=== PATIENT | female | born 1980 | race Caucasian/White ===

== ENCOUNTER 2018-10-15 18:40 | Emergency (ER) | payer MEDICAID ==
[~2018-10-15] VITALS: Ht 154.9 cm; Wt 55.0 kg
[2018-10-15 20:27] LABS: CLARITY URINE CLEAR (CLEAR); COLOR URINE YELLOW (YELLOW); KETONES URINE NEGATIVE (NEGATIVE); LEUKOCYTE ESTERASE URINE NEGATIVE (NEGATIVE); NITRITE URINE NEGATIVE (NEGATIVE); OCCULT BLOOD URINE NEGATIVE (NEGATIVE); PH URINE 5.5 (4.5-8.0); PROTEIN URINE NEGATIVE (NEGATIVE); SPECIFIC GRAVITY URINE 1.018 (1.005-1.030); UROBILINOGEN URINE 0.2 E.U./dL (0.2-1.0)
[2018-10-16] MEDS ORDERED: ACETAMINOPHEN 325MG TABLET PO PRN (01:00)
[2018-10-16 02:01] LABS: CHLORIDE 104 mEq/L (98-107)
[2018-10-16 02:08] LABS: BASOPHILS % 0.5 % (0.0-2.0); EOSINOPHILS % 2.6 % (0.0-5.0); HEMATOCRIT. 35.5 % (36.0-48.0); HEMOGLOBIN. 12.3 g/dL (12.0-16.0); LYMPHOCYTES % 22.9 % (20.0-50.0); MEAN CORPUSCULAR HEMOGLOBIN 29.9 pg (28.0-32.0); MEAN CORPUSCULAR VOLUME 86.6 fL (81.0-99.0); MEAN PLATELET VOLUME 8.2 fl (7.4-10.4); MONOCYTES % 4.2 % (2.0-8.0); NEUTROPHILS % 69.8 % (40.0-76.0); PLATELET 315 x1000/uL (130-400); RED CELL DISTRIBUTION WIDTH 12.1 % (11.6-14.6)
[2018-10-16 02:34] LABS: B-HCG QUANTITATIVE 21435 mIU/mL (<3)
[2018-10-16 03:00] VITALS: BP 104/77
[2018-10-16 11:46] LABS: *AMPHETAMINES SCREEN URINE NEGATIVE (NEGATIVE); *BARBITURATES SCREEN URINE NEGATIVE (NEGATIVE); *BENZODIAZEPINES SCREEN URINE NEGATIVE (NEGATIVE); *COCAINE SCREEN URINE NEGATIVE (NEGATIVE)
[2018-10-16 11:47] LABS: CANNABINOID URINE SCREEN NEGATIVE (NEGATIVE); METHADONE URINE SCREEN NEGATIVE (NEGATIVE); OPIATES URINE SCREEN NEGATIVE (NEGATIVE); PHENCYCLIDINE URINE SCREEN NEGATIVE (NEGATIVE)
== END 2018-10-16 04:01 | disposition home or self-care (01) ==
LOC: ER 18:40
DX: O26.892 Other specified pregnancy related conditions, second trimester (principal); R10.32 Left lower quadrant pain; Z3A.16 16 weeks gestation of pregnancy; Z98.890 Other specified postprocedural states
CPT/HCPCS: 36415; 76805; 80305; 81025; 84702; 86850; 86900; 99284

== ENCOUNTER 2018-11-06 23:56 | Emergency (ER) | payer MEDICAID ==
[~2018-11-06] VITALS: Ht 162.6 cm; Wt 56.5 kg
[2018-11-07 01:25] LABS: CLARITY URINE CLOUDY (CLEAR); COLOR URINE YELLOW (YELLOW); KETONES URINE NEGATIVE (NEGATIVE); LEUKOCYTE ESTERASE URINE 2+ (NEGATIVE); NITRITE URINE NEGATIVE (NEGATIVE); OCCULT BLOOD URINE NEGATIVE (NEGATIVE); PH URINE 6.5 (4.5-8.0); PROTEIN URINE NEGATIVE (NEGATIVE); SPECIFIC GRAVITY URINE 1.017 (1.005-1.030); UROBILINOGEN URINE 0.2 E.U./dL (0.2-1.0)
[2018-11-07] MEDS ORDERED: ACETAMINOPHEN 325MG TABLET PO PRN (01:30)
[2018-11-07 01:48] LABS: BASOPHILS % 0.3 % (0.0-2.0); EOSINOPHILS % 3.8 % (0.0-5.0); HEMATOCRIT. 33.2 % (36.0-48.0); HEMOGLOBIN. 11.7 g/dL (12.0-16.0); LYMPHOCYTES % 22.6 % (20.0-50.0); MEAN CORPUSCULAR HEMOGLOBIN 30.5 pg (28.0-32.0); MEAN CORPUSCULAR VOLUME 86.5 fL (81.0-99.0); MEAN PLATELET VOLUME 7.8 fl (7.4-10.4); MONOCYTES % 4.7 % (2.0-8.0); NEUTROPHILS % 68.6 % (40.0-76.0); PLATELET 293 x1000/uL (130-400); RED BLOOD CELL COUNT 3.84 mill/uL (4.2-5.4); RED CELL DISTRIBUTION WIDTH 12.5 % (11.6-14.6)
[2018-11-07 01:49] LABS: CHLORIDE 106 mEq/L (98-107)
[2018-11-07 02:12] LABS: B-HCG QUANTITATIVE 12600 mIU/mL (<3)
[2018-11-07 04:58] VITALS: BP 112/67
== END 2018-11-07 05:00 | disposition home or self-care (01) ==
LOC: ER 23:56
DX: O23.42 Unspecified infection of urinary tract in pregnancy, second trimester (principal); Z3A.18 18 weeks gestation of pregnancy
CPT/HCPCS: 36415; 76805; 81025; 84702; 99284

== ENCOUNTER 2019-01-12 16:16 | Observation (INO) | payer MEDICAID ==
[~2019-01-12] VITALS: Ht 149.9 cm; Wt 59.0 kg
[2019-01-12 17:08] LABS: CLARITY URINE CLEAR (CLEAR); COLOR URINE YELLOW (YELLOW); KETONES URINE TRACE (NEGATIVE); LEUKOCYTE ESTERASE URINE NEGATIVE (NEGATIVE); NITRITE URINE NEGATIVE (NEGATIVE); OCCULT BLOOD URINE NEGATIVE (NEGATIVE); PROTEIN URINE NEGATIVE (NEGATIVE); SPECIFIC GRAVITY URINE 1.027 (1.005-1.030)
[2019-01-12] MEDS ORDERED: LACTATED RINGERS 1,000 ML IV SCH (18:00)
[2019-01-12] MEDS ORDERED: TERBUTALINE SULFATE 1MG/ML VIAL SUBCUT PRN (18:00)
== END 2019-01-12 19:20 | disposition home or self-care (01) ==
LOC: 8 EST LDRP 16:16
PROVIDERS: ADMIT Specialist; ATTEND Specialist
DX: O26.892 Other specified pregnancy related conditions, second trimester (principal); R10.30 Lower abdominal pain, unspecified; R10.2 Pelvic and perineal pain; Z3A.27 27 weeks gestation of pregnancy
CPT/HCPCS: 81003; 96372; 99281; G0378; J3105; 96360; 96361

== ENCOUNTER 2019-01-25 14:59 | Observation (INO) | payer MEDICAID ==
[~2019-01-25] VITALS: Ht 149.9 cm; Wt 59.0 kg
[2019-01-25] MEDS ORDERED: LACTATED RINGERS 1,000 ML IV SCH (17:15)
[2019-01-25] MEDS: TERBUTALINE SULFATE 1MG/ML VIAL SUBCUT PRN ×2 (17:33→19:42)
[2019-01-25] MEDS ORDERED: PNV1TABL50 PO (20:03)
[2019-01-25] MEDS ORDERED: CALC-1042 PO (20:03)
[2019-01-25] MEDS ORDERED: FERR-71 PO (20:03)
[2019-01-25] MEDS ORDERED: ASPI-1159 PO (20:03)
== END 2019-01-25 20:45 | disposition home or self-care (01) ==
LOC: INTOOBSV 14:59 → OBSVTOIN 14:59 → 8 EST LDRP 14:59
PROVIDERS: ADMIT Specialist; ATTEND Specialist
DX: O26.853 Spotting complicating pregnancy, third trimester (principal); Z3A.29 29 weeks gestation of pregnancy
CPT/HCPCS: 76815; 96372; 99281; G0378; J3105; 96360; 96361

== ENCOUNTER 2019-03-17 19:18 | Observation (INO) | payer MEDICAID ==
[~2019-03-17] VITALS: Ht 149.9 cm; Wt 60.8 kg
[~2019-03-17 19:18] MED LIST: ASPI-1393 PO; CALC-1042 PO; FERR-71 PO; PNV1TABL50 PO
[2019-03-17] MEDS ORDERED: FOLI0.4T2 MT (19:56)
[2019-03-17] MEDS: LACTATED RINGERS 1,000 ML IV SCH ×2 (20:31→22:27)
[2019-03-17] MEDS: TERBUTALINE SULFATE 1MG/ML VIAL SUBCUT PRN ×3 (20:53→22:36)
[2019-03-17 20:58] LABS: CLARITY URINE CLEAR (CLEAR); COLOR URINE YELLOW (YELLOW); KETONES URINE NEGATIVE (NEGATIVE); LEUKOCYTE ESTERASE URINE NEGATIVE (NEGATIVE); NITRITE URINE NEGATIVE (NEGATIVE); OCCULT BLOOD URINE NEGATIVE (NEGATIVE); PROTEIN URINE NEGATIVE (NEGATIVE); SPECIFIC GRAVITY URINE 1.021 (1.005-1.030)
[2019-03-17] MEDS ORDERED: LACTATED RINGERS 1,000 ML IV SCH (23:26)
[2019-03-17] MEDS ORDERED: DEXT 5%/LR + PITOCIN 20UNITS/L 1,000 ML IV SCH (23:26)
[2019-03-17] MEDS ORDERED: NALOXONE HCL 0.4 MG/ML 1ML VIAL IM PRN (23:30)
[2019-03-17] MEDS ORDERED: METHYLERGONOVINE MALEATE 0.2 MG/ML IM PRN (23:30)
[2019-03-17 23:57] LABS: INR 0.9; PARTIAL THROMBOPLASTIN TIME 25.7 sec (23.4-31.0); PROTHROMBIN TIME 9.5 sec (9.6-11.0)
[2019-03-18] LABS: BASOPHILS % 0.4 % (0.0-2.0); EOSINOPHILS % 2.8 % (0.0-5.0); HEMATOCRIT. 35.4 % (36.0-48.0); HEMOGLOBIN. 12.6 g/dL (12.0-16.0); MEAN CORPUSCULAR HEMOGLOBIN 31.5 pg (28.0-32.0); MEAN CORPUSCULAR VOLUME 88.4 fL (81.0-99.0); MEAN PLATELET VOLUME 8.5 fl (7.4-10.4); MONOCYTES % 3.5 % (2.0-8.0); NEUTROPHILS % 66.3 % (40.0-76.0); PLATELET 341 x1000/uL (130-400); RED CELL DISTRIBUTION WIDTH 12.9 % (11.6-14.6)
[2019-03-18 00:31] LABS: HEPATITIS B SURFACE ANTIGEN NEGATIVE
[2019-03-18 09:30] LABS: *AMPHETAMINES SCREEN URINE NEGATIVE (NEGATIVE); CANNABINOID URINE SCREEN NEGATIVE (NEGATIVE)
[2019-03-18 09:31] LABS: *BARBITURATES SCREEN URINE NEGATIVE (NEGATIVE); *BENZODIAZEPINES SCREEN URINE NEGATIVE (NEGATIVE); *COCAINE SCREEN URINE NEGATIVE (NEGATIVE); METHADONE URINE SCREEN NEGATIVE (NEGATIVE); OPIATES URINE SCREEN NEGATIVE (NEGATIVE)
[2019-03-18 09:32] LABS: PHENCYCLIDINE URINE SCREEN NEGATIVE (NEGATIVE)
== END 2019-03-18 05:15 | disposition home or self-care (01) ==
LOC: 8 EST LDRP 19:18
PROVIDERS: ADMIT Obstetrics & Gynecology; ATTEND Obstetrics & Gynecology
DX: O26.893 Other specified pregnancy related conditions, third trimester (principal); R10.30 Lower abdominal pain, unspecified; R10.2 Pelvic and perineal pain; R30.9 Painful micturition, unspecified; Z3A.36 36 weeks gestation of pregnancy
CPT/HCPCS: 36415; 80305; 81003; 85025; 85610; 85730; 86592; 86703; 86762; 86850; 86900; 86901; 87340; 96372; 99281; G0378; J3105; 96360; 96361

== ENCOUNTER 2023-08-21 10:47 | Emergency (ER) | payer MEDICAID ==
[~2023-08-21] VITALS: Ht 160 cm; Wt 65.0 kg
[~2023-08-21 10:47] MED LIST changes: -ASPI-1393 PO; +FOLI0.4T6 MT
[2023-08-21 11:08] VITALS: BP 120/83; PULSE 85; RESP 17; TEMP 98.6; O2SAT 100
[2023-08-21 11:58] LABS: BASOPHILS % 0.5 % (0.0-2.0); EOSINOPHILS % 3.5 % (0.0-5.0); HEMATOCRIT. 42.3 % (36.0-48.0); HEMOGLOBIN. 14.4 g/dL (12.0-16.0); LYMPHOCYTES % 26.5 % (20.0-50.0); MEAN CORPUSCULAR HEMOGLOBIN 30.8 pg (28.0-32.0); MEAN CORPUSCULAR VOLUME 90.4 fL (81.0-99.0); MEAN PLATELET VOLUME 8.5 fl (7.4-10.4); MONOCYTES % 4.2 % (2.0-8.0); NEUTROPHILS % 65.3 % (40.0-76.0); PLATELET 364 x1000/uL (130-400); RED BLOOD CELL COUNT 4.67 mill/uL (4.2-5.4); RED CELL DISTRIBUTION WIDTH 12.5 % (11.6-14.6); WHITE BLOOD COUNT 10.8 x1000/uL (4.5-11.0)
[2023-08-21 12:38] LABS: ALANINE AMINOTRANSFERASE 22 IU/L (10-49); ALBUMIN 4.5 g/dL (3.2-4.8); ASPARTATE AMINOTRANSFERASE 22 IU/L (<34); BILIRUBIN TOTAL 0.5 mg/dL (0.1-1.0); CALCIUM 9.8 mg/dL (8.7-10.4); CARBON DIOXIDE 29 mEq/L (21-32); CHLORIDE 103 mEq/L (98-107); CREATININE 0.7 mg/dL (0.6-1.0); GLUCOSE 97 mg/dL (70-105); POTASSIUM 3.9 mEq/L (3.5-5.1); PROTEIN TOTAL 7.6 g/dL (6.0-8.3); SODIUM 139 mEq/L (136-145); UREA NITROGEN BLOOD 12 mg/dL (9-23)
[2023-08-21 12:53] LABS: TROPONIN I HIGH SENSITIVITY < 4 ng/L (3.0-34)
[2023-08-21] MEDS ORDERED: MECLIZINE 25MG TABLET PO ONE (14:00)
[2023-08-21 14:13] LABS: CLARITY URINE CLEAR (CLEAR); COLOR URINE YELLOW (YELLOW); GLUCOSE URINE NEGATIVE (NEGATIVE); KETONES URINE NEGATIVE (NEGATIVE); LEUKOCYTE ESTERASE URINE NEGATIVE (NEGATIVE); NITRITE URINE NEGATIVE (NEGATIVE); OCCULT BLOOD URINE NEGATIVE (NEGATIVE); PH URINE 6.5 (4.5-8.0); PROTEIN URINE NEGATIVE (NEGATIVE); SPECIFIC GRAVITY URINE 1.018 (1.005-1.030); UROBILINOGEN URINE 0.2 E.U./dL (0.2-1.0)
[2023-08-21 14:49] LABS: HCG SCREEN NEGATIVE
== END 2023-08-21 19:20 | disposition home or self-care (01) ==
LOC: ER 10:47
DX: R42 Dizziness and giddiness (principal); Z98.890 Other specified postprocedural states
CPT/HCPCS: 80053; 81003; 81025; 84703; 85025; 84484; 36415; 70496; 70498; 70450; 99285; J8597; Z7610

== ENCOUNTER 2024-02-11 15:43 | Emergency (ER) | payer MEDICAID, MEDICARE ==
[~2024-02-11] VITALS: Ht 165.1 cm; Wt 65.0 kg
[~2024-02-11 15:43] MED LIST changes: +AMOX1TAB16 MT
[2024-02-11 15:53] VITALS: O2SAT 98
[2024-02-11 16:24] LABS: BASOPHILS % 0.1 % (0.0-2.0); EOSINOPHILS % 2.6 % (0.0-5.0); HEMATOCRIT. 44.2 % (36.0-48.0); HEMOGLOBIN. 14.9 g/dL (12.0-16.0); LYMPHOCYTES % 11.3 % (20.0-50.0); MEAN CORPUSCULAR HEMOGLOBIN 30.1 pg (28.0-32.0); MEAN CORPUSCULAR HGB CONC 33.8 g/dL (31.0-37.0); MONOCYTES % 3.1 % (2.0-8.0); NEUTROPHILS % 82.9 % (40.0-76.0); PLATELET 365 x1000/uL (130-400); RED BLOOD CELL COUNT 4.96 mill/uL (4.2-5.4); RED CELL DISTRIBUTION WIDTH 12.5 % (11.6-14.6); WHITE BLOOD COUNT 13.7 x1000/uL (4.5-11.0)
[2024-02-11 16:27] LABS: CHLORIDE 105 mEq/L (98-107); POTASSIUM 3.8 mEq/L (3.5-5.1); SODIUM 136 mEq/L (136-145)
[2024-02-11 16:28] LABS: CARBON DIOXIDE 25 mEq/L (21-32)
[2024-02-11 16:29] LABS: CALCIUM 9.9 mg/dL (8.7-10.4)
[2024-02-11 16:33] LABS: CREATININE 0.9 mg/dL (0.6-1.0); GLUCOSE 86 mg/dL (70-105); UREA NITROGEN BLOOD 15 mg/dL (9-23)
[2024-02-11 17:52] LABS: CLARITY URINE CLEAR (CLEAR); COLOR URINE YELLOW (YELLOW); GLUCOSE URINE NEGATIVE (NEGATIVE); KETONES URINE TRACE (NEGATIVE); LEUKOCYTE ESTERASE URINE NEGATIVE (NEGATIVE); NITRITE URINE NEGATIVE (NEGATIVE); OCCULT BLOOD URINE TRACE (NEGATIVE); PROTEIN URINE NEGATIVE (NEGATIVE); SPECIFIC GRAVITY URINE 1.029 (1.005-1.030); UROBILINOGEN URINE 0.2 E.U./dL (0.2-1.0)
[2024-02-11 18:18] LABS: WBC URINE NONE SEEN /hpf (0-2)
[2024-02-11 18:19] LABS: BACTERIA URINE NONE SEEN; RBC URINE NONE SEEN /hpf (0-2); SQUAMOUS EPITHELIAL CELL URINE RARE /lpf (RARE/1+)
[2024-02-11] MEDS: ONDANSETRON 4MG ODT PO ONE (18:30)
[2024-02-11] MEDS: ACETAMINOPHEN 325MG TABLET PO ONE (18:30)
[2024-02-11 18:38] LABS: ALANINE AMINOTRANSFERASE 29 IU/L (10-49); ALBUMIN 4.6 g/dL (3.2-4.8); ASPARTATE AMINOTRANSFERASE 25 IU/L (<34); BILIRUBIN DIRECT 0.2 mg/dL (<=3.0); BILIRUBIN TOTAL 0.5 mg/dL (0.1-1.0); PROTEIN TOTAL 8.3 g/dL (6.0-8.3)
[2024-02-11] MEDS ORDERED: IBUP-2028 MT (20:00)
[2024-02-11 20:15] VITALS: BP 156/87; PULSE 88; TEMP 98.4
[2024-02-11 20:20] VITALS: RESP 30
== END 2024-02-11 20:17 | disposition home or self-care (01) ==
LOC: ER 15:43
DX: R10.30 Lower abdominal pain, unspecified (principal); R11.2 Nausea with vomiting, unspecified; R19.7 Diarrhea, unspecified
CPT/HCPCS: 99284; 74176; 80076; 80048; 81003; 81025; 83690; 85025; 36415; Q0162

== ENCOUNTER 2024-09-06 12:27 | Emergency (ER) | payer MEDICAID ==
[~2024-09-06] VITALS: Ht 165.1 cm; Wt 69.0 kg
[~2024-09-06 12:27] MED LIST changes: +IBUP-2028 MT
[2024-09-06 12:32] VITALS: O2SAT 99
[2024-09-06] MEDS: DEXAMETHASONE 4MG/ML 1ML VIAL IV ONE (15:48)
[2024-09-06] MEDS: METOCLOPRAMIDE HCL 10MG/2ML VIAL IV ONE (15:49)
[2024-09-06] MEDS: SODIUM CHLORIDE 0.9% 1,000 ML IV ONE (15:49)
[2024-09-06] MEDS: KETOROLAC 30MG/ML VIAL IV ONE (15:49)
[2024-09-06 16:21] LABS: BASOPHILS % 0.5 % (0.0-2.0); HEMATOCRIT. 42.4 % (36.0-48.0); HEMOGLOBIN. 14.7 g/dL (12.0-16.0); LYMPHOCYTES % 29.6 % (20.0-50.0); MEAN CORPUSCULAR HEMOGLOBIN 30.7 pg (28.0-32.0); MEAN CORPUSCULAR HGB CONC 34.8 g/dL (31.0-37.0); MEAN CORPUSCULAR VOLUME 88.1 fL (81.0-99.0); MEAN PLATELET VOLUME 8.3 fl (7.4-10.4); MONOCYTES % 4.5 % (2.0-8.0); NEUTROPHILS % 61.4 % (40.0-76.0); PLATELET 377 x1000/uL (130-400); RED BLOOD CELL COUNT 4.81 mill/uL (4.2-5.4); RED CELL DISTRIBUTION WIDTH 12.5 % (11.6-14.6); WHITE BLOOD COUNT 9.4 x1000/uL (4.5-11.0)
[2024-09-06 16:24] LABS: CHLORIDE 105 mEq/L (98-107); POTASSIUM 4.1 mEq/L (3.5-5.1); SODIUM 139 mEq/L (136-145)
[2024-09-06 16:25] LABS: CARBON DIOXIDE 28 mEq/L (21-32)
[2024-09-06 16:26] LABS: CALCIUM 9.8 mg/dL (8.7-10.4)
[2024-09-06 16:30] LABS: CREATININE 0.8 mg/dL (0.6-1.0); GLUCOSE 97 mg/dL (70-105); UREA NITROGEN BLOOD 11 mg/dL (9-23)
[2024-09-06 16:36] LABS: T4 FREE 1.25 ng/dL (0.89-1.76); THYROID STIMULATING HORMONE 0.36 uIU/mL (0.55-4.78)
[2024-09-06 16:43] LABS: HCG SCREEN NEGATIVE
[2024-09-06] MEDS ORDERED: ASPI-1153 PO (16:49)
[2024-09-06 17:22] VITALS: BP 145/82; PULSE 90; RESP 14; TEMP 37.05852; O2SAT 99
== END 2024-09-06 17:23 | disposition home or self-care (01) ==
LOC: ER 12:27
DX: G43.909 Migraine, unspecified, not intractable, without status migrainosus (principal); Z98.890 Other specified postprocedural states; Z79.899 Other long term (current) drug therapy
CPT/HCPCS: 99284; 96374; 96375; 96361; 80048; 81025; 84703; 84439; 84443; 85025; 36415; J1100; J1885; J2765; J7030

== ENCOUNTER 2025-01-04 16:29 | Emergency (ER) | payer MEDICAID ==
[~2025-01-04] VITALS: Ht 157.5 cm; Wt 70.0 kg
[~2025-01-04 16:29] MED LIST changes: +ASPI-1153 PO
[2025-01-04 16:47] VITALS: O2SAT 99
[2025-01-04 17:05] VITALS: BP 112/69; PULSE 83; RESP 20; TEMP 36.6; O2SAT 98
[2025-01-04] MEDS: MAGNESIUM/ALUMINUM HYDROXIDE/SIMETHICONE 30ML UDC PO STA (17:36)
[2025-01-04 18:04] LABS: CLARITY URINE CLEAR (CLEAR); COLOR URINE YELLOW (YELLOW); GLUCOSE URINE NEGATIVE (NEGATIVE); KETONES URINE NEGATIVE (NEGATIVE); LEUKOCYTE ESTERASE URINE NEGATIVE (NEGATIVE); NITRITE URINE NEGATIVE (NEGATIVE); OCCULT BLOOD URINE NEGATIVE (NEGATIVE); PROTEIN URINE NEGATIVE (NEGATIVE); SPECIFIC GRAVITY URINE 1.022 (1.005-1.030)
[2025-01-04 18:24] LABS: BASOPHILS % 0.4 % (0.0-2.0); EOSINOPHILS % 3.3 % (0.0-5.0); HEMOGLOBIN. 13.9 g/dL (12.0-16.0); LYMPHOCYTES % 31.1 % (20.0-50.0); MEAN CORPUSCULAR HEMOGLOBIN 29.9 pg (28.0-32.0); MEAN CORPUSCULAR VOLUME 88.2 fL (81.0-99.0); MEAN PLATELET VOLUME 8.3 fl (7.4-10.4); MONOCYTES % 6.6 % (2.0-8.0); NEUTROPHILS % 58.6 % (40.0-76.0); PLATELET 361 x1000/uL (130-400); RED BLOOD CELL COUNT 4.65 mill/uL (4.2-5.4); RED CELL DISTRIBUTION WIDTH 12.6 % (11.6-14.6); WHITE BLOOD COUNT 8.4 x1000/uL (4.5-11.0)
[2025-01-04 18:36] LABS: INR 0.9; PROTHROMBIN TIME 10.2 sec (9.6-11.0)
[2025-01-04 18:37] LABS: CHLORIDE 105 mEq/L (98-107); POTASSIUM 3.9 mEq/L (3.5-5.1); SODIUM 142 mEq/L (136-145)
[2025-01-04 18:38] LABS: CALCIUM 9.8 mg/dL (8.7-10.4); CARBON DIOXIDE 31 mEq/L (21-32)
[2025-01-04 18:43] LABS: CREATININE 0.9 mg/dL (0.6-1.0); GLUCOSE 97 mg/dL (70-105); UREA NITROGEN BLOOD 16 mg/dL (9-23)
[2025-01-04 18:45] LABS: ALANINE AMINOTRANSFERASE 26 IU/L (10-49); ALBUMIN 4.3 g/dL (3.2-4.8); ASPARTATE AMINOTRANSFERASE 22 IU/L (<34); BILIRUBIN TOTAL 0.3 mg/dL (0.1-1.0)
[2025-01-04 18:46] LABS: HCG SCREEN NEGATIVE; PROTEIN TOTAL 7.7 g/dL (6.0-8.3)
[2025-01-04 18:53] LABS: BILIRUBIN DIRECT < 0.1 mg/dL (<=3.0)
[2025-01-05] MEDS ORDERED: FAMO-135 MT (00:24)
[2025-01-05] MEDS ORDERED: MAG-55 MT (00:24)
[2025-01-05] MEDS ORDERED: IOHEXOL-300 100 ML BOTTLE ONE (20:09)
== END 2025-01-05 00:41 | disposition home or self-care (01) ==
LOC: ER 16:29
DX: K52.9 Noninfective gastroenteritis and colitis, unspecified (principal); Z79.82 Long term (current) use of aspirin; Z98.890 Other specified postprocedural states; Z79.899 Other long term (current) drug therapy
CPT/HCPCS: 99285; 74177; 80076; 80048; 81003; 81025; 84703; 83690; 85025; 85610; 36415; Q9967

== ENCOUNTER 2025-08-08 08:44 | Emergency (ER) | payer MEDICAID ==
[~2025-08-08] VITALS: Ht 154.9 cm; Wt 60.9 kg
[~2025-08-08 08:44] MED LIST changes: +FAMO-135 MT; +MAG-55 MT
[2025-08-08 09:04] VITALS: TEMP 36.8; O2SAT 100
[2025-08-08 09:29] LABS: BASOPHILS % 0.6 % (0.0-2.0); EOSINOPHILS % 3.7 % (0.0-5.0); HEMATOCRIT. 43.1 % (36.0-48.0); HEMOGLOBIN. 14.7 g/dL (12.0-16.0); LYMPHOCYTES % 21.0 % (20.0-50.0); MEAN PLATELET VOLUME 7.9 fl (7.4-10.4); MONOCYTES % 3.7 % (2.0-8.0); NEUTROPHILS % 71.0 % (40.0-76.0); PLATELET 354 x1000/uL (130-400); RED BLOOD CELL COUNT 4.95 mill/uL (4.2-5.4); RED CELL DISTRIBUTION WIDTH 12.8 % (11.6-14.6)
[2025-08-08 09:54] LABS: CREATININE 0.8 mg/dL (0.6-1.0); UREA NITROGEN BLOOD 8 mg/dL (9-23)
[2025-08-08 10:26] LABS: HCG SCREEN NEGATIVE
[2025-08-08] MEDS: SUMATRIPTAN SUCCINATE 6MG/0.5ML VIAL SUBCUT SCH (10:28)
[2025-08-08] MEDS: METOCLOPRAMIDE HCL 10MG TABLET PO SCH (10:31)
[2025-08-08] MEDS: DIPHENHYDRAMINE 12.5MG/5ML UDC PO SCH (10:31)
[2025-08-08] MEDS: ACETAMINOPHEN 500MG TABLET PO SCH (10:31)
[2025-08-08 10:49] LABS: TROPONIN I HIGH SENSITIVITY < 4 ng/L (3.0-34)
[2025-08-08 10:50] LABS: CLARITY URINE CLEAR (CLEAR); COLOR URINE YELLOW (YELLOW); GLUCOSE URINE NEGATIVE (NEGATIVE); KETONES URINE 1+ (NEGATIVE); LEUKOCYTE ESTERASE URINE NEGATIVE (NEGATIVE); NITRITE URINE NEGATIVE (NEGATIVE); OCCULT BLOOD URINE NEGATIVE (NEGATIVE); PH URINE 6.0 (4.5-8.0); PROTEIN URINE NEGATIVE (NEGATIVE); SPECIFIC GRAVITY URINE 1.015 (1.005-1.030); UROBILINOGEN URINE 0.2 E.U./dL (0.2-1.0)
[2025-08-08 11:54] LABS: ASPARTATE AMINOTRANSFERASE 23 IU/L (<34)
[2025-08-08 11:55] LABS: BILIRUBIN DIRECT 0.2 mg/dL (<=3.0); BILIRUBIN TOTAL 0.6 mg/dL (0.1-1.0); PROTEIN TOTAL 7.6 g/dL (6.0-8.3)
[2025-08-08 12:48] VITALS: BP 118/68; PULSE 65; RESP 18; O2SAT 99
== END 2025-08-08 12:52 | disposition home or self-care (01) ==
LOC: ER 08:44
DX: R51.9 Headache, unspecified (principal); Z79.82 Long term (current) use of aspirin; Z98.890 Other specified postprocedural states; Z79.899 Other long term (current) drug therapy
CPT/HCPCS: 80076; 80048; 81003; 84703; 83690; 85025; 84484; 36415; 96372; 99284; J8597; Q0163; J3030; Z7610 ×2